=== PATIENT | male | born 1955 | race Caucasian/White ===

== ENCOUNTER 2023-01-28 09:36 | Emergency (ER) | payer MEDICARE ==
[2023-01-28] MEDS ORDERED: Ipratropium/Albuterol 3 ML NEB ONE (10:11)
[2023-01-28] MEDS ORDERED: Dexamethasone 20 MG/5 ML VIAL ONE (10:12)
== END 2023-01-28 11:35 | disposition home or self-care (01) ==
LOC: NAV ERS 09:36
DX: J20.9 Acute bronchitis, unspecified (principal); I10 Essential (primary) hypertension; Z20.822 Contact with and (suspected) exposure to COVID-19
CPT/HCPCS: 71046; 87804 ×2; U0003; U0005; 96372; J1100; J7620